=== PATIENT | female | born 1975 | race Caucasian/White ===

== ENCOUNTER → 2024-01-22 09:59 | Outpatient (REF) | payer OTHER, SELFPAY | LOC: RCS 09:59 | PROVIDERS: ATTENDING PHYSICIAN Internal Medicine Cardiovascular Disease; FAMILY PHYSICIAN Family Medicine | DX: I44.7 Left bundle-branch block, unspecified (principal); Z86.79 Personal history of other diseases of the circulatory system | CPT/HCPCS: 93306 ==